=== PATIENT | female | born 1985 | race Caucasian/White ===

== ENCOUNTER 2021-01-26 19:42 | Emergency (ER) | payer OTHER ==
[~2021-01-26] VITALS: Ht 162.6 cm; Wt 136.1 kg
[2021-01-26] MEDS ORDERED: AMOCLA875 PO (21:35)
[2021-01-26] MEDS ORDERED: SULTRIDS PO (21:35)
== END 2021-01-26 21:49 | disposition home or self-care (01) ==
LOC: ER 19:42
DX: L03.213 Periorbital cellulitis (principal)
CPT/HCPCS: 99283; A9270

== ENCOUNTER 2022-12-05 12:00 | Emergency (ER) | payer OTHER ==
[~2022-12-05] VITALS: Ht 165.1 cm; Wt 99.8 kg
[~2022-12-05 12:00] MED LIST: AMOCLA875 PO; Amoxicillin500 MG PO; Bactrim Ds Tab1 EACH PO; FLUC150A PO; SULTRIDS PO
[2022-12-05 12:31] VITALS: BP 182/82
[2022-12-05] MEDS ORDERED: Norco 5-325 Ta1 EACH PO (12:58)
[2022-12-05] MEDS ORDERED: Bactrim Ds Tab1 EACH PO (13:49)
[2022-12-05] MEDS ORDERED: CEPH500 PO (13:49)
== END 2022-12-05 13:09 | disposition home or self-care (01) ==
LOC: ER 12:00
DX: L03.116 Cellulitis of left lower limb (principal); L03.115 Cellulitis of right lower limb
CPT/HCPCS: 99282

== ENCOUNTER 2023-06-28 01:20 | Emergency (ER) | payer OTHER ==
[~2023-06-28] VITALS: Ht 162.6 cm; Wt 129.3 kg
[~2023-06-28 01:20] MED LIST changes: +CEPH500 PO; +Norco 5-325 Ta1 EACH PO
[2023-06-28 01:30] VITALS: BP 161/81
[2023-06-28] MEDS ORDERED: METF500 PO (02:55)
== END 2023-06-28 03:01 | disposition home or self-care (01) ==
LOC: ER 01:20
DX: R60.0 Localized edema (principal); Z79.84 Long term (current) use of oral hypoglycemic drugs
CPT/HCPCS: 82947; 99284